=== PATIENT | male | born 1960 | race Caucasian/White ===

== ENCOUNTER 2024-05-08 13:40 | Inpatient (IN) | payer OTHER, SELFPAY ==
[2024-05-07 22:28] VITALS: BP 111/76
[2024-05-07 22:54] LABS: % Basophils 0.2 % (0-2); % Eosinophils 0.8 % (0-6); % Immature Granulocytes 0.3 % (0-0.5); % Lymphocytes 13.8 % (20.5-51.1); % Monocytes 7.5 % (1.7-9.3); % Neutrophils 77.4 % (42.2-75.2); Absolute Eosinophils 0.1 10^3/uL (0-0.7); Absolute Lymphocytes 1.6 10^3/uL (1.2-3.4); Absolute Monocytes 0.9 10^3/uL (0.1-0.6); Absolute Neutrophils 8.9 10^3/uL (1.4-6.5); Hematocrit 44.5 % (39.0-52.0); Hemoglobin 15.2 g/dL (13.0-18.0); Mean Corp Hgb Conc. 34.2 g/dL (33.0-37.0); Mean Corpuscular Hgb 30.6 pg (27.0-31.0); Mean Corpuscular Volume 89.5 fL (80.0-94.0); Mean Platelet Volume 8.9 fL (7.4-10.4); Nucleated Red Blood Cells % 0 % (-); Platelet Count 198 10^3/uL (130-400); Red Blood Cell Count 4.97 10^6/uL (4.70-6.10); White Blood Cell Count 11.5 10^3/uL (4.8-10.8)
[2024-05-07 23:08] LABS: ALT (SGPT) 32 U/L (0-50); AST (SGOT) 20 U/L (17-59); Alkaline Phosphatase 92 U/L (38-126); Blood Urea Nitrogen 13 mg/dl (9-20); Carbon Dioxide 28 mmol/L (22-30); Chloride 101 mmol/L (98-107); Glucose 138 mg/dl (70-99); Lipase 299 U/L (23-300); Potassium 4.2 mmol/L (3.5-5.1); Sodium 137 mmol/L (135-145); Total Bilirubin 1.3 mg/dl (0.2-1.3); Total Protein 6.8 g/dl (6.3-8.2); eGFR > 60.00
[2024-05-07 23:20] LABS: Troponin I < 0.012 ng/ml
[2024-05-08] VITALS (51 sets, daily range): BP systolic 68–124; BP diastolic 42–84; BMI 32.9; BMI 31.1
--- NOTE | 2024-05-08 01:04 | ED.GENMED ---
History of Present Illness
General
Chief Complaint: Chest Pain
Source: patient
Exam Limitations: none
Time Seen by Provider: 05/08/24 01:00
History of Present Illness
History of Present Illness:
See MDM
Past History
Past History
ED Past Medical History: None
ED Past Surgical History: Cholecystectomy and Other (Surgery for a bursa repair)
Social History
Personal:
Living: with family
Employment: Employed
Family History
Family History: Early CAD
Phy Exam
Physical Exam
Physical Exam:
See MDM
Scores
Heart Score for Chest Pain Patients
STEMI patient?: Not applicable
Course
Orders/Labs/Results
Orders:
Orders
05/07/24 22:21
Electrocardiogram (*1) Urgent
Reason for Study: Chest Pain
EKG- Treatment ONCE
05/07/24 22:37
Complete Blood Count/With Diff Urgent
Comprehensive Metabolic Panel Urgent
Lipase Urgent
Troponin I Urgent
05/08/24 01:03
CT Abd/pelvis W Iv Cont Urgent
Comment:
Reason For Exam: RLQ pain
0.9% Sodium Chloride 1000 ml [Nss] 1,000 ml IV BOLUS
Ketorolac [Toradol] 30 mg IV NOW STA
Morphine Sulfate 4 mg IV NOW STA
Ondansetron Injectable [Zofran] 4 mg IV NOW STA
Abnormal Lab Results
05/07/24
22:37
WBC 11.5 H 10^3/uL
(4.8-10.8)
Absolute Neuts (auto) 8.9 H 10^3/uL
(1.4-6.5)
Absolute Monos (auto) 0.9 H 10^3/uL
(0.1-0.6)
Neutrophils % 77.4 H %
(42.2-75.2)
Lymphocytes % 13.8 L %
(20.5-51.1)
Glucose 138 H mg/dl
(70-99)
05/07/24 22:37
05/07/24 22:37
Vital Signs
Initial and Last Documented VS:
Initial Vital Signs
Temp Pulse Resp BP Pulse Ox
98.1 F 92 16 111/76 100
05/07/24 22:28 05/07/24 22:28 05/07/24 22:28 05/07/24 22:28 05/07/24 22:28
Last Documented Vital Signs
Temp Pulse Resp BP Pulse Ox
98.1 F 93 17 120/84 92
05/07/24 22:28 05/08/24 01:30 05/08/24 01:30 05/08/24 01:00 05/08/24 01:30
MDM/Problems Addressed
Differential Diagnosis Includes:
HPI and MDM Narrative:
63-year-old male presenting with abdominal pain. In triage, he was complaining about abdominal pain and chest pain. Upon further questioning, patient states the abdominal pain is the main issue. It was radiating below his chest but he denies any
significant chest discomfort. Since yesterday, the vague abdominal pain has now localized to the right lower quadrant. This is associated with nausea and anorexia and decreased p.o. intake. On exam, he is somewhat uncomfortable. He does have
point and localized tenderness to the right lower quadrant. Will provide pain medicine and obtain CT to rule out acute appendicitis
Physical exam
General: Mildly uncomfortable
HEENT: protecting airway. Mildly dry mucous membranes
Neck: appears supple
CV: No evidence of cyanosis
Resp: No accessory muscle use
Abd: Non-distended. Point tenderness to right lower quadrant
Extremities: No deformities
Neuro: alert
Psych: Normal affect
Skin: Intact
Problems Addressed including Acute and Chronic Conditions affecting care:
1. Right lower quadrant abdominal pain
Acuity: acute
Prognosis: stable
Details: Given radiation of pain and now with localization to the right lower quadrant, will obtain CT to rule out acute appendicitis. Will provide pain medicine
Updates
Patient radiology confirms acute appendicitis. Surgery made aware. Will start Zosyn and admit
Differential Diagnosis (but not limited to): Acute appendicitis, mesenteric adenitis, kidney stone, colitis
Testing considered: Urinalysis but he denies symptoms
Drug therapy (if applicable): OTC meds, please see d/c instruction regarding Rx drugs
Amount and/or Complexity of Data Reviewed
Clinical info obtained from: Patient
External data reviewed: N/A
Labs I independently reviewed (but not limited to): Mild leukocytosis
Radiology: The CT scan was personally and independently reviewed. In addition, official CT report reviewed.
Pulse Ox: not hypoxic
EKG independently reviewed: N/A
Technical Support Associate: N/A
Critical Care: N/A
Risk of Complication:
Social Determinants of health: Good social support
Discussed with other providers: General Surgery
Escalation of Care includes Admit/Obs: Given the acute appendicitis, will start antibiotics and admit
Occasional wrong word or 'sound a like' substitutions may have occurred due to the inherent limitations of voice recognition software. Read the chart carefully and recognize, using context, where substitutions have occurred.
*Critical Care Note
Total Time (30-74mins, 75-104mins- exclusive of procedures): Not Applicable
ED Attending Note
-
Portions of this chart may have been created with voice recognition software.� Occasional wrong word or��sound alike� substitutions may have occurred due to the inherent limitations of voice recognition software.
Discharge Plan
Departure
Patient Disposition: Admit
Date of Disposition: 05/08/24
Time of Disposition: 02:29
Admit to: Med/Surg
Presentation/result/management discussed w/ accepting MD/DO: General Surgeon
Discharge Problem:
Acute appendicitis
Prescriptions:
No Action
oxycodone-acetaminophen 1 TABLET tablet
1 - 2 tab PO Q4HPRN PRN (Reason: prn for pain) Qty: 20 0RF
Referrals:
UNKNOWN - PT DOES,NOT KNOW [Family Provider] -
Interventions
Interventions:
*Risk Screen - Suicide Last Done: 05/07/24 22:28
*General Assessment Last Done: 05/07/24 22:28
*Neglect/Abuse Screening Last Done: 05/07/24 22:28
ED- Fall Risk Assessment Last Done: 05/08/24 00:16
*ED COVID-19 Vaccine History Last Done: 05/07/24 22:28
ED- Cardiac Assessment Last Done: 05/08/24 00:16
Discharge Date and Time
Print Language: SETSWANA
[2024-05-08] MEDS: NSS 1000 IV ×4 (01:21→22:59)
[2024-05-08] MEDS: TORADOL 30 MG IV (01:22)
[2024-05-08] MEDS: ZOFRAN 4 MG IV (01:22)
[2024-05-08] MEDS: MORPHINE SULFATE 4 MG IV (01:23)
--- NOTE | 2024-05-08 03:18 | HPS.HSE ---
Addendum entered and electronically signed by Anival Chadwick MD 05/08/24 10:37:
Patient seen and examined independently of admitting nurse practitioner. Agree with documented history and physical consistent with my recent examination evaluation earlier this a.m. with additions documented here.
HPI: 63-year-old male acute onset of abdominal pain approximately 36 hours ago. Initially generalized but quickly localized to the right lower quadrant. Nausea, anorexia but no vomiting. Last bowel movement Sunday prior to symptoms starting. No
similar episodes in the past.
Denies any significant active medical history or past medical history. Surgical history only notable for lap jakob
AFVSS
NAD AAOx3
ABD: Soft, nondistended, tenderness palpation localized to the right lower quadrant with voluntary guarding rebound at McBurney's point
CT imaging reviewed. Distended appendix, fecalith within mid appendix. Surrounding inflammatory changes. No organizing abscess or phlegmon. Base of the appendix and cecum appear unremarkable.
Laboratory test reviewed white blood cell count 11.5 improved to 9.9 today. Chemistries generally otherwise unremarkable.
A/P: 63-year-old male presenting with acute appendicitis.
Reviewed with patient indications for appendectomy as well as nonoperative management options. After discussions patient was in agreement to proceed with appendectomy.
Laparoscopic appendectomy reviewed in detail including the operative technique, alternative treatment options, potential operative findings and the management, benefits and risk such as but not limited to bleeding, infectious and wound related
complications, iatrogenic injury to surrounding viscera. We discussed the typical postoperative recovery pending operative findings.
Patient on OR schedule for lap appendectomy today
Zosyn
IV fluid hydration n.p.o. and supportive care awaiting OR availability
Original Note:
Family Physician
-
Family Physician: NOT KNOW UNKNOWN - PT DOES
Chief Complaint
-
abd pain since 05/06
History of Present Illness
63-year-old male presenting with abdominal pain since evening 05/06/24. Initially, pt describes pain as in lower abd quadrants. He thought maybe he needed to pass gas/bm but throughout night he was unable to sleep. Pain then became more
localized to RLQ. Has not had BM in 2 days. This is associated with nausea and anorexia and decreased p.o. intake. He does have point and localized tenderness to the right lower quadrant. Denies vomiting. Admits to chills but afebrile in ED. Pain
now controlled post pain meds.
CT abd: acute appendicitis. There is an appendicolith at base of appendix. Distal appendix dilated up to 1.2cm with mod amt surrounding free fluid. No free air or abscess
WBC 11.5 with left shift.
Medical History
Past Medical History
Past Medical History: Reports Hypercholesterolemia (denies taking meds)
Past Surgical History: Reports Cholecystectomy and Orthopedic (multiple bursa removed)
Social History
Tobacco: Non-smoker
Alcohol: Occasional
Drug: None
Personal:
Living: With Family
Family History
Family History: Early CAD
Allergies / Home Medications
Allergies reflects when Allergies were last updated in [facility].
Home Medications with original date entered in [facility]
Allergy/Medication List:
Allergies
Allergy/AdvReac Type Severity Reaction Status Date / Time
No Known Allergies Allergy Unverified 09/23/13 10:35
Home Medications
denies taking home meds
Review of Systems
-
History Source: Patient
A 12 point ROS was completed and negative except as noted: Yes
Constitutional: Reports Chills and Other (poor appetite)
EENT: Reports No Symptoms
Respiratory: Reports No Symptoms
Cardiac: Reports No Symptoms
Abdomen/GI: Reports Abdominal Pain (intially lower quadrant pain then localized to RLQ), Nausea and Constipated (no bm x 2 days)
: Reports No Symptoms
Musculoskeletal: Reports No Symptoms
Skin: Reports No Symptoms
Neurological: Reports No Symptoms
Endocrine: Reports No Symptoms
Hematologic/Lymphatic: Reports No Symptoms
Psych: Reports No Symptoms
Physical Exam
Vital Signs
Vital Signs
Temp Pulse Resp BP Pulse Ox
98.1 F 92 16 107/68 91
05/07/24 22:28 05/08/24 02:30 05/08/24 02:30 05/08/24 02:10 05/08/24 02:30
Physical Exam
General: Well Developed, Well Nourished, No Apparent Distress, Comfortable and Pain (pain now 2/10 post pain meds)
HEENT: NormoCephalic, Anicteric, Moist mucous membranes and Atraumatic
Respiratory: Clear and Non Labored Respirations
Cardiac: S1/S2 and Regular Rhythm
Breast: Deferred by me
GI: Soft and Tender (Tender RLQ with palpation. Abd obese); No Non Tender or Non Distended
Rectal: Deferred by Provider
Genito-urinary: Deferred by me
Musculoskeletal: No Clubbing and No Cyanosis
Skin: Warm and Dry
Neuro: Awake, Oriented, AO x 3, No Motor Deficits and Nonfocal/grossly intact
Hematologic/Lymphatic: No Lymphadenopathy
Psych: Calm
Laboratory Results
-
05/07/24 22:37
05/07/24 22:37
Laboratory Results
Total Bilirubin 1.3 mg/dl (0.2-1.3) 05/07/24 22:37
AST 20 U/L (17-59) 05/07/24 22:37
ALT 32 U/L (0-50) 05/07/24 22:37
Alkaline Phosphatase 92 U/L (38-126) 05/07/24 22:37
Troponin I < 0.012 ng/ml 05/07/24 22:37
Lipase 299 U/L (23-300) 05/07/24 22:37
Data Reviewed
-
CT Scan: Report Reviewed by me and Discussed with Physician
Lab Data: Labs Reviewed by me
Impression/Plan
-
IMPRESSION:
acute appendicitis
PLAN:
Admit to service of Dr Chadwick
med surg obs
#acute appendicitis
-CT abd: acute appendicitis. There is an appendicolith at base of appendix. Distal appendix dilated up to 1.2cm with mod amt surrounding free fluid. No free air or abscess.
-WBC 11.5 left shift--> repeat cbc in am
-zosyn q6h
-pain control: toradol, dilaudid, tylenol
-ivf nss@100
-NPO x meds- pending OR in am
*will consult case mgmt due to pt unsure of insurance coverage because he thinks he's out of network now with recent insurance changes
DVT proph: scd
full code.
[2024-05-08] MEDS: ZOSYN 100 IV (03:35)
--- NOTE | 2024-05-08 04:35 | PTCARENOTE ---
Pt arrived to room 435-02. Pt ambulated from stretcher to bed. Pt AAOx3, VSS. Pt c/o pain 03/28 RLQ. Pt oriented to room, call vanegas placed within reach.
[2024-05-08 08:06] LABS: % Basophils 0.3 % (0-2); % Eosinophils 0.4 % (0-6); % Immature Granulocytes 0.5 % (0-0.5); % Lymphocytes 9.3 % (20.5-51.1); % Monocytes 7.8 % (1.7-9.3); % Neutrophils 81.7 % (42.2-75.2); Absolute Immature Granulocytes 0.1 10^3/uL (0-0.05); Absolute Lymphocytes 0.9 10^3/uL (1.2-3.4); Absolute Monocytes 0.8 10^3/uL (0.1-0.6); Absolute Neutrophils 8.1 10^3/uL (1.4-6.5); Hematocrit 41.1 % (39.0-52.0); Hemoglobin 13.8 g/dL (13.0-18.0); Mean Corp Hgb Conc. 33.6 g/dL (33.0-37.0); Mean Corpuscular Hgb 30.8 pg (27.0-31.0); Mean Corpuscular Volume 91.7 fL (80.0-94.0); Nucleated Red Blood Cells % 0 % (-); Platelet Count 147 10^3/uL (130-400); Red Blood Cell Count 4.48 10^6/uL (4.70-6.10); Red Cell Dist. Width 13.2 % (11.5-14.5); White Blood Cell Count 9.9 10^3/uL (4.8-10.8)
[2024-05-08 08:29] LABS: Blood Urea Nitrogen 14 mg/dl (9-20); Calcium 8.2 mg/dl (8.4-10.2); Carbon Dioxide 31 mmol/L (22-30); Chloride 103 mmol/L (98-107); Estimated Creatinine Clearance 78 ml/min; Glucose 122 mg/dl (70-99); Potassium 4.5 mmol/L (3.5-5.1); Sodium 136 mmol/L (135-145); eGFR > 60.00
[2024-05-08] MEDS: DILAUDID 0.5 MG IV (08:35)
--- NOTE | 2024-05-08 10:58 | CM ---
Janell andres admitted under observation, obs letter discussed not signed, patient reports that he lives with his spouse in a 2 story home, patient is independent with adl's and ambulation, no dme, patient drives.
PCP: [facility]
Pharmacy: [facility]
Plan; Home when stable.
[2024-05-08] MEDS: ZOSYN 50 IV ×3 (11:00→21:54)
--- NOTE | 2024-05-08 12:09 | W.SUR.PREOP ---
Pre-Operative Surgical Note
-
I have examined this patient prior to the performance of the scheduled procedure.
The patient's condition is unchanged from the time of the current History and
Physical and the patient is able to undergo the scheduled procedure.
--- NOTE | 2024-05-08 13:37 | W.IMMPOSTOP ---
Addendum entered and electronically signed by Anival Chadwick MD 05/08/24 13:47:
#[id number]
Original Note:
Surgical Immed Post Op Note
-
Primary Surgeon: Anival Chadwick MD
Assisting Surgeon: EMILIA Gilbert
Pre-op Diagnosis: Acute appendicitis
Post-op Diagnosis: Perforated, gangrenous acute appendicitis with localized peritonitis
Procedure Performed: Laparoscopic appendectomy
Anesthesia Type: GETA +0.25% Marcaine
Specimen / Cultures: Appendix
Estimated Blood Loss: 6 mL
Complications: None immediate
Operative Findings: Walled off, contained perforated appendicitis in the right lower quadrant. Inflammatory adhesions from sigmoid colon epiploic appendages, terminal ileum and associated mesentery and peritoneal lining. Gangrenous perforation at
site of probable fecalith. No abscess organized. Localized peritonitis. Careful dissection freeing appendix without further disruption other than site of perforation. Mid and proximal appendix healthy as well as base of cecum. Harmonic scalpel
utilized for mobilization and division of mesoappendix. Endo ANDREW morelos 45 mm articulating stapler to divide appendix flush with cecum.
Plan: Hold on clear liquid diet initially postoperatively monitoring for risk of ileus
Continue Zosyn due to complicated acute appendicitis
IV fluid hydration
Repeat labs tomorrow a.m.
Updated patient's via phone call leaving voice message
[2024-05-08] MEDS: NORMOSOL-R/PLASMALYTE-A 500 IV ×2 (14:20→15:00)
--- NOTE | 2024-05-08 14:43 | SUR.PHASEI ---
Pt treated with Ephedrine 10mg IV by Dr Carvalho @[phone] Andrade @ [phone]. See captured vs. Pt conversing with staff w/o difficulty.
[2024-05-08] MEDS: NEO-SYNEPHRINE 250 IV (15:10)
--- NOTE | 2024-05-08 18:42 | W.PN.SURGUPD ---
Surgical Update
Surgical Update
Notified by nursing. Patient with low blood pressure postoperatively after recovery in PACU and transferred to floors.
Patient seen and examined.
States he feels great.
Preoperative abdominal pain resolved. No significant postoperative pain at incision sites or in abdomen.
No nausea. No vomiting.
He has voided postoperatively.
No chest pain, dizziness or lightheadedness
Heart rate 68, BP 94/50, afebrile
NAD AAOx3
ABD: Soft, nondistended, nontender on palpation. Incision sites clean with glue dressing. No ecchymosis.
Suspect low blood pressure related to recent general anesthesia and postop status/pain meds
No clinical signs of sepsis or SIRS response at this time
No clinical signs of postoperative bleeding
Check CBC and BMP stat out of precaution
Continue with current IV fluids
Will monitor.
[2024-05-08 18:52] LABS: Hematocrit 38.5 % (39.0-52.0); Hemoglobin 12.8 g/dL (13.0-18.0); Mean Corp Hgb Conc. 33.2 g/dL (33.0-37.0); Mean Corpuscular Volume 93.2 fL (80.0-94.0); Mean Platelet Volume 8.7 fL (7.4-10.4); Platelet Count 139 10^3/uL (130-400); Red Blood Cell Count 4.13 10^6/uL (4.70-6.10); Red Cell Dist. Width 13.2 % (11.5-14.5); White Blood Cell Count 10.9 10^3/uL (4.8-10.8)
[2024-05-08 19:09] LABS: Blood Urea Nitrogen 15 mg/dl (9-20); Calcium 7.8 mg/dl (8.4-10.2); Carbon Dioxide 29 mmol/L (22-30); Chloride 100 mmol/L (98-107); Estimated Creatinine Clearance 84 ml/min; Glucose 170 mg/dl (70-99); Potassium 4.1 mmol/L (3.5-5.1); Sodium 134 mmol/L (135-145); eGFR > 60.00
[2024-05-09] MEDS: ZOSYN 50 IV ×3 (04:19→15:45)
[2024-05-09 07:00] VITALS: BP 98/54
[2024-05-09] MEDS: NSS 1000 IV (07:50)
[2024-05-09] MEDS: NSS IV (07:56)
[2024-05-09 07:57] LABS: Hematocrit 34.6 % (39.0-52.0); Hemoglobin 11.5 g/dL (13.0-18.0); Mean Corp Hgb Conc. 33.2 g/dL (33.0-37.0); Mean Corpuscular Hgb 30.6 pg (27.0-31.0); Mean Platelet Volume 9.4 fL (7.4-10.4); Platelet Count 159 10^3/uL (130-400); Red Blood Cell Count 3.76 10^6/uL (4.70-6.10); Red Cell Dist. Width 13.1 % (11.5-14.5); White Blood Cell Count 10.2 10^3/uL (4.8-10.8)
[2024-05-09 08:29] LABS: Blood Urea Nitrogen 13 mg/dl (9-20); Carbon Dioxide 27 mmol/L (22-30); Chloride 105 mmol/L (98-107); Estimated Creatinine Clearance 101 ml/min; Glucose 120 mg/dl (70-99); Potassium 4.3 mmol/L (3.5-5.1); Sodium 137 mmol/L (135-145); eGFR > 60.00
--- NOTE | 2024-05-09 11:59 | W.PN.GS2 ---
Today's Communication / Plan
-
ADAT
abx
Assessment / Plan
-
63M POD1 s/p lap appy for perforated appendicitis with pus
Afebrile, soft BP, no singificant tachycardia, clinically feels well
Bin PO, + bowel function, denies n/v
Plan:
Fulls for lunch
LRD dinner
Ambulate
DVT ppx
IV abx
DC home today vs tomorrow if does well with diet, will likely need PO abx on DC
Subjective Data
-
Date of Service: May 09, 2024
Afebrile, soft BP, no significant tachycardia, pain controlled, passing BM and flatus, denies n/v, feels 'great'
Objective Data
-
Intake and Output
05/08/24 05/09/24 05/10/24
06:59 06:59 06:59
Intake Total 2019
Balance 2019
Intake:
Oral fluids 220 / 220
IV fluids (Total) 1800 / 1800
Normosol 1800 / 1800
Other:
Number of approximated MODERATE 2
amounts of urine
Vital Signs
Temp Pulse Resp BP Pulse Ox
97.4 F 59 18 98/54 92
05/09/24 07:00 05/09/24 07:00 05/09/24 07:00 05/09/24 07:00 05/09/24 08:18
Lab Results
05/09/24 06:51
05/09/24 06:51
Calcium 8.0 mg/dl (8.4-10.2) L 05/09/24 06:51
Total Bilirubin 1.3 mg/dl (0.2-1.3) 05/07/24 22:37
AST 20 U/L (17-59) 05/07/24 22:37
ALT 32 U/L (0-50) 05/07/24 22:37
Alkaline Phosphatase 92 U/L (38-126) 05/07/24 22:37
Total Protein 6.8 g/dl (6.3-8.2) 05/07/24 22:37
Albumin 4.0 g/dl (3.5-5.0) 05/07/24 22:37
Physical Exam
-
Gen: NAD
Abd: soft, approp ttp, incisions cdi
Patient has a akbar catheter: No
Patient has a central line: No
[2024-05-09] MEDS: HEPARIN 5000 UNITS SC (13:34)
--- NOTE | 2024-05-09 14:06 | CM ---
patient switched to inpatient patient made aware, home when stable, no needs.
Plan; Home when stable, no needs.
[2024-05-09 15:00] VITALS: BP 105/58
== END 2024-05-09 17:20 | disposition home or self-care (01) | DRG 399 ==
LOC: 4 WEST ACU 13:40
PROVIDERS: Nurse Practitioner Family; ADMITTING PHYSICIAN Surgery; EMERGENCY PHYSICIAN Student in an Organized Health Care Education/Training Program
PROC: 0DTJ4ZZ Resection of Appendix, Percutaneous Endoscopic Approach (ICD-10-PCS; 2024-05-08)
DX: K35.32 Acute appendicitis with perforation, localized peritonitis, and gangrene, without abscess (principal); K38.1 Appendicular concretions; K66.0 Peritoneal adhesions (postprocedural) (postinfection); E78.00 Pure hypercholesterolemia, unspecified
CPT/HCPCS: 88304; 74177; 80048; 80053; 83690; 84484; 85025; 85027; 93005; 96361; 96374; 96375; 99285; Q9967